=== PATIENT | female | born 1950 | race Hispanic/Latino ===

== ENCOUNTER 2020-06-16 14:30 | Inpatient (IN) | payer MEDICARE ==
[~2020-06-16] VITALS: Ht 162.6 cm; Wt 90.7 kg
[2020-06-16] MEDS ORDERED: SODIUM CHLORIDE 0.9% 1000ML 1,000 ML IV STA (14:49)
[2020-06-16] MEDS ORDERED: MORPHINE SULFATE INJ 4 MG/ML INJ 1ML IV STA (14:49)
[2020-06-16] MEDS ORDERED: ONDANSETRON HCL INJ 2MG/ML 2ML 2 MG/ML VIAL IV STA (14:49)
--- NOTE | 2020-06-16 14:52 | Emergency Department Note ---
History of Present Illnes History of Present Illness Chief Complaint: Skin Rash or Abscess History of Present Illness This is a 70 year old female presents to the ED for 2 days of right sided facial pain. Seen at [facility] yesterday and was told that based on XR patient had dental decay on the left side of the mouth. Noted that this AM patient had increased swelling to the right malar region and right upper lip. Denies f/c/n/v . Onset (how long ago): day(s) (2) Severity: moderate Duration (how long): day(s) (2) Timing of current episode: constant Progression: worsening Context: Denies recent illness, Denies recent surgery, Denies recent immobilization, Denies recent travel, Denies trauma/injury, Denies new medications, Denies hx of DVT/PE, Denies non-compliance w/ medications, Denies other Exacerbating factors: eating Associated symptoms: Denies denies other symptoms, Denies confusion, Denies chest pain, Denies cough, Denies diaphoresis, Denies fever/chills, Denies headaches, Denies loss of appetite, Denies malaise, Denies nausea/vomiting, Denies rash, Denies seizure, Denies shortness of breath, Denies syncope, Denies weakness, Denies other Treatments prior to arrival: none Past Medical/Family History Physician Review I have reviewed the patient's past medical and family history. Any updates have been documented here. Past Medical History Recent Fever: No Clinical Suspicion of Infectio: Yes New/Unexplained Change in Ment: No Past Medical History: None Past Surgical History: None Social History Smoking Cessation: Never Smoker Alcohol Use: None Any Illegal Drug Use: No Review of Systems Review of Systems Constitutional: Reports no symptoms EENTM: Reports mouth swelling Cardiovascular: Reports no symptoms Respiratory: Reports no symptoms Gastrointestinal: Reports no symptoms Genitourinary: Reports no symptoms Musculoskeletal: Reports no symptoms Integumentary: Reports no symptoms Neurological: Reports no symptoms Psychological: Reports no symptoms Endocrine: Reports no symptoms Hematological/Lymphatic: Reports no symptoms Physical Exam Related Data Allergies: Coded Allergies: No Known Allergies (Unverified , 06/16/20) Vital signs reviewed: Yes Physical Exam CONSTITUTIONAL Constitutional: Present well-developed, Present well-nourished HENT HENT: Present dental caries HENT L/R: Present left ext ear normal, Present right ext ear normal EYES Eyes: Reports PERRL, Reports conjunctivae normal NECK Neck: Present ROM normal PULMONARY Pulmonary: Present effort normal, Present breath sounds normal CARDIOVASCULAR Cardiovascular: Present regular rhythm, Present heart sounds normal, Present capillary refill normal, Present normal rate GASTROINTESTINAL Abdominal: Present soft, Present nontender, Present bowel sounds normal GENITOURINARY Genitourinary: Present exam deferred SKIN Skin: Present other (right malar edema with right upper lip edema. multiple dental decay) MUSCULOSKELETAL Musculoskeletal: Present ROM normal NEUROLOGICAL Neurological: Present alert, Present oriented x 3, Present no gross motor or sensory deficits PSYCHOLOGICAL Psychological: Present mood/affect normal, Present judgement normal Results Laboratory Lab results reviewed: Yes Laboratory comments CBC : wbc 13 , CMP : wnl Assessment & Plan Medical Decision Making MDM Diff Dx : facial cellulitis, facial abscess, ANUG Assessment & Plan Final Impression: (1) Facial cellulitis (2) Periodontal abscess Depart Disposition: ADMITTED Home Meds Reported Medications [Vitamin] No Conflict Check 06/16/20 Levothyroxine Sodium (LEVOTHYROXINE SODIUM) 25 Mcg Tablet 06/16/20 Olmesartan/Hydrochlorothiazide (Olmesartan-Hctz 40-12.5 mg Tab) 1 Each Tablet 06/16/20 Metoprolol Succinate (METOPROLOL SUCCINATE) 50 Mg Tab.er.24h 06/16/20 Simvastatin (SIMVASTATIN) 40 Mg Tablet 06/16/20 Levothyroxine Sodium (Euthyrox) 25 Mcg Tablet 06/16/20 Phentermine Hcl (PHENTERMINE HCL) 37.5 Mg Tablet 06/16/20 Ibuprofen (IBUPROFEN) 600 Mg Tablet 06/16/20 Amoxicillin (AMOXICILLIN) 500 Mg Capsule 06/16/20 ROGER GREENE DO Jun 16, 2020 14:52
[2020-06-16] MEDS ORDERED: ONDANSETRON HCL INJ 2MG/ML 2ML 2 MG/ML VIAL IV PRN ×2 (15:00→18:15)
[2020-06-16] MEDS ORDERED: MORPHINE SULFATE 2 MG/ML SYR 1ML IV PRN (15:00)
[2020-06-16] MEDS ORDERED: SODIUM CHLORIDE 0.9% 1000ML 1,000 ML IV SCH (15:00)
--- OUTSIDE RECORDS SUMMARY | 2020-06-16 15:12 | XMS REPORT | Continuity of Care Document ---
Author Author [facility] Organization [facility] Address [address] [place] [address] Phone Unavailable Care Team Providers Care Biodiesel Engine Specialist Name Role Phone Unavailable Unavailable Problems This patient has no known problems. Allergies, Adverse Reactions, Alerts This patient has no known allergies or adverse reactions. Medications This patient has no known medications. Procedures This patient has no known procedures. Results Test Description Test Time Test Comments Results Result Comments Source SCR MAMM BILATERAL TEAGAN CAD DIGITAL 2020-04-30 15:14:50 - SCR MAMM BILATERAL TEAGAN CAD DIGITALBILATERAL DIGITAL SCREENING MAMMOGRAM 3D/2D WITH CAD: 04/30/2020CLINICAL: Asymptomatic. Digital breast tomosynthesis was performed in addition to routine CC and MLO views. Current mammographic images were evaluated by either a [employer] M-Vu or a [employer] ImageChecker CAD (computer aided detection system). Comparison is made to exams dated 01/11/2019 mammogram and mammogram - [facility]. The tissue of both breasts is predominantly fatty. There are benign calcifications in both breasts. No suspicious mass, architectural distortion, malignant type calcification, or lymph node abnormality detected. Breast architecture is stable compared to prior exams.IMPRESSION: BENIGNThere is no mammographic evidence of malignancy. Resume annual screening mammography in one year. Remy Kay M.D. ss/penrad:04/30/2020 15:14:50 [employer]: Aliza TROTTER, [facility] sent: BIRADS 1-2 Normal Mammogram BI-RADS: 2 Benign SCR MAMM BILATERAL TEAGAN CAD DIGITAL 2019-01-11 08:38:49 - SCR MAMM BILATERAL TEAGAN CAD DIGITALBILATERAL DIGITAL SCREENING MAMMOGRAM 3D/2D WITH CAD: 01/11/2019CLINICAL: Asymptomatic. Digital breast tomosynthesis was performed in addition to routine CC and MLO views. Current mammographic images were evaluated by either a [employer] M-Vu or a [employer] ImageChecker CAD (computer aided detection system). Comparison is made to exam dated 01/10/2018 mammogram - [facility]. The tissue of both breasts is predominantly fatty. There are benign calcifications in both breasts. No suspicious mass, architectural distortion, malignant type calcification, or lymph node abnormality detected. Breast architecture is stable compared to prior exams.IMPRESSION: BENIGNThere is no mammographic evidence of malignancy. Resume annual screening mammography in one year. Remy Kay M.D. ss/penrad:01/11/2019 08:38:49 [employer]: Jody TROTTER, [facility] sent: BIRADS 1-2 Normal Mammogram BI-RADS: 2 Benign
[2020-06-16] MEDS ORDERED: SODIUM CHLORIDE 0.9% 50ML 50 ML ONE (15:13)
[2020-06-16] MEDS ORDERED: IOPAMIDOL 370 MG/ML 200 ML INFUS..BTL INJ ONE (15:13)
--- OUTSIDE RECORDS SUMMARY | 2020-06-16 15:14 | XMS REPORT | Continuity of Care Document ---
Author Author [facility] Organization [facility] Address [address] [place] [address] Phone Unavailable Care Team Providers Care Engineering Inspection Assistant Name Role Phone Unavailable Unavailable Problems This [...] mammographic images were evaluated by either a [employer] M-Vu or a [employer] ImageChecker CAD (computer aided detection system). Comparison is made to exams dated 01/11/2019 mammogram and mammogram - [facility]. The tissue of both breasts is predominantly fatty. There are benign calcifications in both breasts. No suspicious mass, architectural distortion, malignant type calcification, or lymph node abnormality detected. Breast architecture is stable compared to prior exams.IMPRESSION: BENIGNThere is no mammographic evidence of malignancy. Resume annual screening mammography in one year. Remy Kay M.D. ss/penrad:04/30/2020 15:14:50 Personnel Records Clerk: Aliza TROTTER, [facility] sent: BIRADS 1-2 Normal Mammogram BI-RADS: 2 Benign SCR MAMM BILATERAL TEAGAN CAD DIGITAL 2019-01-11 08:38:49 - SCR MAMM BILATERAL TEAGAN CAD DIGITALBILATERAL DIGITAL SCREENING MAMMOGRAM 3D/2D WITH CAD: 01/11/2019CLINICAL: Asymptomatic. Digital breast tomosynthesis was performed in addition to routine CC and MLO views. Current mammographic images were evaluated by either a [employer] M-Vu or a [employer] ImageChecker CAD (computer aided detection system). Comparison is made to exam dated 01/10/2018 mammogram - [facility]. The tissue of both breasts is predominantly fatty. There are benign calcifications in both breasts. No suspicious mass, architectural distortion, malignant type calcification, or lymph node abnormality detected. Breast architecture is stable compared to prior exams.IMPRESSION: BENIGNThere is no mammographic evidence of malignancy. Resume annual screening mammography in one year. Remy Kay M.D. ss/penrad:01/11/2019 08:38:49 Personnel Records Clerk: Jody TROTTER, [facility] sent: BIRADS 1-2 Normal Mammogram BI-RADS: 2 Benign
--- OUTSIDE RECORDS SUMMARY | 2020-06-16 15:15 | XMS REPORT | Continuity of Care Document ---
Author Author [facility] Organization [facility] Address [address] [place] [address] Phone Unavailable Care Team Providers Care Associate Engineer Name Role Phone Unavailable Unavailable Problems This [...] mammographic images were evaluated by either a [employer] M-Vu or a [employer] ImageChecker CAD (computer aided detection system). Comparison is made to exams dated 01/11/2019 mammogram and mammogram - [facility]. The tissue of both breasts is predominantly fatty. There are benign calcifications in both breasts. No suspicious mass, architectural distortion, malignant type calcification, or lymph node abnormality detected. Breast architecture is stable compared to prior exams.IMPRESSION: BENIGNThere is no mammographic evidence of malignancy. Resume annual screening mammography in one year. Remy Kay M.D. ss/penrad:04/30/2020 15:14:50 Virtualization Engineer: Aliza TROTTER, [facility] sent: BIRADS 1-2 Normal Mammogram BI-RADS: 2 Benign SCR MAMM BILATERAL TEAGAN CAD DIGITAL 2019-01-11 08:38:49 - SCR MAMM BILATERAL TEAGAN CAD DIGITALBILATERAL DIGITAL SCREENING MAMMOGRAM 3D/2D WITH CAD: 01/11/2019CLINICAL: Asymptomatic. Digital breast tomosynthesis was performed in addition to routine CC and MLO views. Current mammographic images were evaluated by either a [employer] M-Vu or a [employer] ImageChecker CAD (computer aided detection system). Comparison is made to exam dated 01/10/2018 mammogram - [facility]. The tissue of both breasts is predominantly fatty. There are benign calcifications in both breasts. No suspicious mass, architectural distortion, malignant type calcification, or lymph node abnormality detected. Breast architecture is stable compared to prior exams.IMPRESSION: BENIGNThere is no mammographic evidence of malignancy. Resume annual screening mammography in one year. Remy Kay M.D. ss/penrad:01/11/2019 08:38:49 Virtualization Engineer: Jody TROTTER, [facility] sent: BIRADS 1-2 Normal Mammogram BI-RADS: 2 Benign
[2020-06-16] MEDS ORDERED: PIPER-TAZ 3.375 GM 50 ML ONE (15:54)
[2020-06-16] MEDS ORDERED: PIPERACILLIN/TAZO 4.5 GM 100 ML IV ONE (16:00)
[2020-06-16] MEDS ORDERED: LEVOTHYROXINE25 MCG (16:01)
[2020-06-16] MEDS ORDERED: PHENTERMINE H37.5 M1 PO (16:01)
[2020-06-16] MEDS ORDERED: OLMESARTAN-HCT1 EAC1 PO (16:01)
[2020-06-16] MEDS ORDERED: SIMVASTATIN40 MG PO (16:01)
[2020-06-16] MEDS ORDERED: EUTHYROX25 MCG PO (16:01)
[2020-06-16] MEDS ORDERED: AMOXICILLIN500 MG PO (16:01)
[2020-06-16] MEDS ORDERED: METOPROLOL SUCC50 MG PO (16:01)
[2020-06-16] MEDS ORDERED: IBUPROFEN600 MG PO (16:01)
[2020-06-16] MEDS ORDERED: VITAMIN (16:01)
[2020-06-16] MEDS ORDERED: ONDANSETRON HCL INJ 2MG/ML 2ML 2 MG/ML VIAL ONE (16:25)
[2020-06-16] MEDS ORDERED: MORPHINE SULFATE INJ 4 MG/ML INJ 1ML ONE (16:25)
[2020-06-16 17:05] VITALS: BP 138/54
[2020-06-16] MEDS ORDERED: CLONIDINE HCL 0.1 MG TAB PO PRN (17:15)
--- NOTE | 2020-06-16 17:34 | Diagnostic Imaging Report ---
CT MAX/FACPARANASAL [facility] HISTORY: Right facial swelling COMPARISON: None. TECHNIQUE: Axial CT images through the face were obtained with intravenous contrast. Coronal reformations were created. One or more of the following dose reduction techniques were used: Automated exposure control, adjustment of the mA and/or kV according to patient size, and/or utilization of iterative reconstruction technique. DISCUSSION: Periapical lucency at the right maxillary canine erodes through the buccal cortex and into the medial right maxillary sinus. Adjacent, 1.1 cm periosteal fluid collection along the anterior right maxilla is compatible with an abscess. There is marked local premaxillary cellulitis, right greater than left. Associated mild right maxillary sinus mucosal thickening is likely odontogenic. Additional scattered mild bilateral periapical lucencies are present. Multiple teeth are missing. No other discrete drainable fluid collection is identified. Mildly prominent bilateral upper cervical lymph nodes are likely reactive. No acute fracture is seen. No other destructive osseous lesions are seen. The orbits are intact. Intraorbital contents are grossly unremarkable. The paranasal sinuses are otherwise clear. Carotid siphon calcifications are present. Otherwise, the imaged intracranial compartment is grossly unremarkable. IMPRESSION: 1. Periapical abscess at the right maxillary canine erodes the buccal cortex and bulges into the right premaxillary subcutaneous soft tissues. 2. Mild right maxillary sinusitis is also likely odontogenic; periapical lucency at the right maxillary canine also erodes into the right maxillary sinus. Signed by: Dr. Morris Beach M.D. on 06/16/2020 5:31 PM
[2020-06-16] MEDS ORDERED: TURMERIC COMPL1 EACH PO (17:45)
[2020-06-16] MEDS ORDERED: WOMEN'S 50 PLU1 EACH PO (17:45)
[2020-06-16 17:46] VITALS: BP 138/54
[2020-06-16 17:47] VITALS: BP 138/54
--- NOTE | 2020-06-16 18:00 | NUR ---
RECEIVED PATIENT FROM [facility] TO ROOM 292. SHE IS IN STABLE CONDITION. IV LINE PATENT. ORIENTED TO ROOM AND POLICIES. CALL LIGHT WITHIN REACH. BED IN THE LOWEST POSITION.
[2020-06-16] MEDS: CLINDAMYCIN 600MG / 50ML 50 ML IV SCH (18:18)
[2020-06-16] MEDS: SODIUM CHLORIDE 0.9% 1000ML 1,000 ML IV SCH (18:18)
--- NOTE | 2020-06-16 19:10 | NUR ---
BEDSIDE SHIFT REPORT GIVEN TO ONCOMING NURSE. PATIENT IS RESTING IN BED. NO ACUTE DISTRESS NOTED AT THIS TIME. CALL LIGHT WITHIN REACH. BED IN THE LOWEST POSITION.
--- NOTE | 2020-06-16 19:15 | NUR ---
Patient visited in room during nursing rounds. Patient alert and oriented x3. Ambulatory in room prn. Right side of face appear swollen (cheek area up to under right eye). Patient on IVF (NS at 125ml/hr) and on scheduled IV antibiotic treatment. Call huffman within reach. Will monitor pt closely.
--- NOTE | 2020-06-16 19:35 | NUR ---
With order from ER doc (Dr. Scar Dumont), patient agreed and signed consent form for PICC placement. Nurse to notify Radiology dept to call in PICC nurse.
--- NOTE | 2020-06-16 19:40 | NUR ---
Verified with Rodrick ([employer]) that PICC nurse has been notified.
[2020-06-16 20:00] VITALS: BP 119/51
[2020-06-16] MEDS: ACETAMINOPHEN 325 MG TAB PO PRN (20:40)
[2020-06-16 21:30] VITALS: BP 119/51
--- NOTE | 2020-06-16 22:10 | NUR ---
Reece (PICC nurse) arrived on the unit and verified order for PICC placement with nurse (José). PICC nurse then went in patient room and explained PICC procedure. Pt verbally agreed to have procedure done.
--- NOTE | 2020-06-16 22:30 | NUR ---
PICC procedure done on right upper arm. STAT CXR ordered to confirm placement.
--- NOTE | 2020-06-16 22:40 | NUR ---
CXR done in room. Awaiting on results to confirm PICC placement.
--- NOTE | 2020-06-16 22:53 | Diagnostic Imaging Report ---
EXAMINATION: CHEST XRAY LINE PLACEMENT INDICATION: confirm PICC line placement COMPARISON: None FINDINGS: TUBES and LINES: New right upper extremity PICC tip terminates in the superior cavoatrial junction. LUNGS: Normal lung volumes. Lungs are clear. No consolidations. PLEURA: No pleural effusion or pneumothorax. HEART AND MEDIASTINUM: The cardiomediastinal silhouette is unremarkable. BONES AND SOFT TISSUES: No acute osseous lesion. Soft tissues are unremarkable. UPPER ABDOMEN: No free air under the diaphragm. Surgical clips in the right upper quadrant. IMPRESSION: No acute thoracic radiographic abnormality. Signed by: Arun Retana DO on 06/16/2020 10:49 PM
--- NOTE | 2020-06-16 22:53 | NUR ---
Nurse (José) was informed verbally by PICC nurse (Reece) to confirm that PICC was placed successfully and that he spoke with radiologist. Plan is to to take out peripheral IV and start using PICC line for IVF and IV antibiotics.
[2020-06-17] VITALS (8 sets, daily range): BP systolic 112–133; BP diastolic 50–61
[2020-06-17] MEDS: CLINDAMYCIN 600MG / 50ML 50 ML IV SCH ×4 (00:06→17:02)
[2020-06-17] MEDS: MORPHINE SULFATE 2 MG/ML SYR 1ML IV PRN ×2 (00:06→08:31)
--- NOTE | 2020-06-17 01:33 | History and Physical ---
CHIEF COMPLAINT: Right facial swelling. HISTORY OF PRESENT ILLNESS: This is a 70-year-old woman, who has a little bit of right facial swelling for about a week. Yesterday, she went to dentist and per the patient, one of her left teeth was pulled, however, apparently the patient has multiple cavities. This morning, she woke up with worsening of right facial swelling. Otherwise, denies nausea, vomiting, fever. No chest pain or shortness of breath. In the emergency room, the patient received a dose of Zosyn. The patient is being admitted with a diagnosis of facial cellulitis. The patient was prescribed amoxicillin yesterday after her dental procedure. PAST MEDICAL AND SURGICAL HISTORY: 1. Hypertension. 2. Hyperlipidemia. 3. Hypothyroidism. 4. Appendectomy. 5. Cholecystectomy. MEDICATIONS: Please see medication reconciliation form. ALLERGIES: NONE. SOCIAL HISTORY: Does not smoke. FAMILY HISTORY: Diabetes and heart disease. REVIEW OF SYSTEMS: A 10-point review of system obtained and nothing else is significant other than what is stated in the HPI. PHYSICAL EXAMINATION: VITAL SIGNS: Temperature 100.3, pulse 99, respiratory rate 21, blood pressure 119/51. GENERAL: No acute distress. SKIN: Right facial erythema noted with swelling. HEENT: Anicteric. Oropharynx with poor dentition. LUNGS: Clear. HEART: Regular rate and rhythm. Normal S1, S2. GI: Abdomen is soft, nondistended. NEUROLOGIC: Alert and oriented x3. Cranial nerves 2-12 grossly intact. PSYCHIATRIC: No hallucination. MUSCULOSKELETAL: Painless range of motion. LABORATORY DATA: White count 13, hemoglobin 13, platelet count 387. Sodium 137, potassium 4.4, BUN 11, creatinine 1.0. ASSESSMENT/PLAN: 1. Facial cellulitis. Her facial CT, which is read by the radiologist. The patient was initially seen at [facility]. CT shows periapical abscess at the right maxillary canine. The patient was initially admitted as facial cellulitis. At this time, I will consult Ear, Nose, Throat specialist and also Infectious Disease specialist and after they have a chance to evaluate the patient, we have to see whether we need to transfer her for higher level of care to a hospital, which has oral maxillary facial surgery. It looks like the patient has sepsis present on admission. We will continue IV fluid hydration and also IV morphine as needed for pain. 2. Hypertension. Currently, blood pressure is stable. 3. GI and DVT prophylaxis. We will start her on heparin subcu for now, though we will discontinue if she needs surgical intervention. MD RAPHAEL Akbar/ANDI /[id number]
[2020-06-17] MEDS: SODIUM CHLORIDE 0.9% 1000ML 1,000 ML IV SCH ×3 (02:30→20:49)
[2020-06-17] MEDS: ACETAMINOPHEN 325 MG TAB PO PRN ×2 (04:04→15:32)
[2020-06-17 06:01] LABS: BASOPHILS % 0.3 % (0.0-1.0); EOSINOPHILS % 0.3 % (0.0-6.0); HEMATOCRIT 31.8 % (34.2-44.1); HEMOGLOBIN 10.6 g/dL (12.0-16.0); LYMPHOCYTES # (AUTO) 1.7 (1.0-3.2); LYMPHOCYTES % 14.3 % (18.0-39.1); MEAN CORPUSCULAR HEMOGLOBIN 30.7 pg (28-32); MEAN CORPUSCULAR HGB CONC 33.3 g/dL (31-35); MEAN CORPUSCULAR VOLUME 92.2 fL (81-99); MONOCYTES # (AUTO) 1.1 (0.2-0.8); NEUTROPHILS # (AUTO) 8.9 (2.1-6.9); NEUTROPHILS % 75.8 % (38.7-80.0); PLATELET COUNT 312 x10e3/uL (140-360); RED BLOOD COUNT 3.45 x10e6/uL (3.6-5.1); RED CELL DISTRIBUTION WIDTH 13.1 % (11.7-14.4)
[2020-06-17 06:04] LABS: INR 1.06; PROTHROMBIN TIME 14.3 seconds (11.9-14.5)
[2020-06-17 06:05] LABS: PARTIAL THROMBOPLASTIN TIME 31.1 seconds (23.8-35.5)
[2020-06-17 06:16] LABS: ALANINE AMINOTRANSFERASE 86 IU/L (0-55); ALBUMIN 3.5 g/dL (3.5-5.0); ALBUMIN/GLOBULIN RATIO 1.1 (0.8-2.0); ALKALINE PHOSPHATASE 69 IU/L (40-150); ANION GAP 12.4 mmol/L (8-16); BLOOD UREA NITROGEN 6 mg/dL (7-26); BUN/CREATININE RATIO 8 (6-25); CALCIUM 8.1 mg/dL (8.4-10.2); CARBON DIOXIDE 27 mmol/L (22-29); CHLORIDE 103 mmol/L (98-107); CREATININE, SERUM 0.71 mg/dL (0.57-1.11); EST GLOMERULAR FILTRATION RATE > 60 ML/MIN (60-); GLUCOSE 115 mg/dL (74-118); POTASSIUM 3.4 mmol/L (3.5-5.1); SODIUM 139 mmol/L (136-145)
--- NOTE | 2020-06-17 07:00 | NUR ---
RECEIVED BEDSIDE SHIFT REPORT FROM OFF GOING NIGHT NURSE. PATIENT IN STABLE CONDITION, NO S/S OF DISTRESS NOTED. RESPIRATIONS EVEN AND NONLABORED. FACIAL SWELLING NOTED THE THE RIGHT SIDE OF THE FACE. PATIENT ABLE TO MAKE NEEDS KNOWN. NO PAIN VOICED. IV FLUIDS INFUSING, SITE ASYMPTOMATIC AND PATENT, TRANSPARENT DRESSING C/D/I. BED IN LOWEST POSITION AND LOCKED. CALL LIGHT WITHIN REACH.
[2020-06-17] MEDS: OXYMETAZOLINE HCL 0.05% NAS 1 SPRAY BTL SCH ×2 (08:33→20:17)
[2020-06-17] MEDS: SALINE 0.65% NAS SOLN 1 SPRAY BTL SCH ×4 (08:33→22:07)
[2020-06-17] MEDS: HEPARIN SOD (PORCINE) 5,000 UNIT/ML VIAL SC SCH ×2 (09:00→20:17)
--- NOTE | 2020-06-17 09:25 | Consultation ---
DATE OF CONSULTATION: 06/17/2020 Hospital Consultation HISTORY OF PRESENT ILLNESS: I was kindly asked to see this 70-year-old woman for evaluation of facial cellulitis. The patient reports approximately two weeks ago she began experiencing pain in her tooth and face. The pain became progressively worse and two days ago, she sought consultation with her dentist who discovered dental abscess in both the left upper and right lower teeth. She underwent dental extraction of the left upper tooth, actually dentist claimed that was the worst abscess. Her facial pain and swelling progressed and she presented to the emergency department for evaluation and treatment. Subsequent CT scan demonstrated a periapical abscess of the right maxillary canine which eroded through the buccal cortex and bulges into the right premaxillary subcutaneous soft tissues. There was also noted mild right maxillary sinusitis, which was consistent with odontogenic infection and the right maxillary canine also eroded into the right maxillary sinus. The patient was begun on IV antibiotic therapy and reports significant improvement in her right-sided facial pain after initiation of the antibiotics. PAST MEDICAL HISTORY: Reviewed in detail in chart. PAST SURGICAL HISTORY: Reviewed in detail in chart. REVIEW OF SYSTEMS: Otolaryngology review of systems is pertinent for itchy ears which the patient uses Q-Tips. PHYSICAL EXAMINATION: The right pinna is normal. The right external auditory canal has cerumen impacted in the medial aspect. The tympanic membrane cannot be visualized. The left pinna is normal. Left external auditory canal is normal. Left tympanic membrane is normal. She has a moderate S-shaped nasal septal deviation with minimal edema of the nasal mucosa. She has multiple carious teeth and tenderness in the right buccal mucosal area and right premaxilla. There is normal tongue and no significant postnasal drainage. She has no palpable cervical adenopathy. There is facial swelling on the right side involving the entire right premaxillary region and including the upper and lower eyelids. ASSESSMENT: 1. Facial cellulitis secondary to dental abscess. 2. Acute sinusitis secondary to dental abscess. 3. Nasal septal deviation. 4. Right impacted cerumen. 5. A 1.1 cm periosteal fluid collection along the anterior right maxilla on CT scan. PLAN: 1. Continuation of IV antibiotic therapy. 2. Addition of [place] nasal spray and oxymetazoline nasal spray for treatment of the sinusitis. 3. No surgical intervention for the dental abscess at this time. However, she may require surgery based on clinical course. MD MARISA Cota/ANDI /[id number]
[2020-06-17] MEDS ORDERED: POTASSIUM CHLORIDE 20 MEQ TAB CR PO ONE (13:00)
--- NOTE | 2020-06-17 18:33 | NUR ---
INFECTIOUS DISEASE CONSULT NOTE BRITTA OSUNA MD CC: facial cellulitis HPI: 70-year-old woman, who has a little bit of right facial swelling for about a week. Yesterday, she went to dentist and per the patient, one of her left teeth was pulled, however, apparently the patient has multiple cavities. This morning, she woke up with worsening of right facial swelling. Otherwise, denies nausea, vomiting, fever. No chest pain or shortness of breath. In the emergency room, the patient received a dose of Zosyn. The patient is being admitted with a diagnosis of facial cellulitis. The patient was prescribed amoxicillin yesterday after her dental procedure. PMH: 1. Hypertension. 2. Hyperlipidemia. 3. Hypothyroidism. 4. Appendectomy. 5. Cholecystectomy. PAST SURGICAL HX: denies SOCIAL HX: no smoking, no drinking FAMILY HX: heart disease ROS: jaw pain ALL 14 POINT ROS NEG UNLESS OTHERWISE NOTED PHYSICAL EXAM: VITAL SIGNS: per chart SKIN: Right facial erythema noted with swelling. HEENT: Anicteric. Oropharynx with poor dentition. LUNGS: Clear. HEART: Regular rate and rhythm. Normal S1, S2. GI: Abdomen is soft, nondistended. NEUROLOGIC: Alert and oriented x3. intact PSYCHIATRIC: No hallucination. no anxiety MUSCULOSKELETAL: Painless range of motion. no joint swelling LABORATORY DATA: per chart RADIOLOGY: reviewed LABS: reviewed IMPRESSION: Facial Cellulitis Perapical abscess at right maxillary canine Sepsis present on admission PLAN: will change to vanc and cefepime appreciate ENT input will monitor response clinically Valeria Hudson MSN, SERVICE PARTS COORDINATOR, AGACNP-BC Britta osuna M.D
--- NOTE | 2020-06-17 18:35 | NUR ---
TONIE COMPUTER SCIENTIST ( WITH ) MADE AWARE OF THE PATIENT HAVING A FEVER OF 101.4 RECIVED NEW ORDERS.
--- NOTE | 2020-06-17 19:00 | NUR ---
Resumed care of patient. Patient awake and resting in bed, no s/s of distress at this time. Bed locked and in lowest position, side rails upx3, call light placed within reach. Patient instructed to call for assistance if needed, verbalized understanding. All safety measures in place.
--- NOTE | 2020-06-17 19:17 | NUR ---
COMPLETED BEDSIDE SHIFT REPORT AND ROUNDING FROM OFF GOING NIGHT NURSE. PATIENT IN STABLE CONDITION, NO S/S OF DISTRESS NOTED. RESPIRATIONS EVEN AND NONLABORED. FACIAL SWELLING NOTED THE THE RIGHT SIDE OF THE FACE. PATIENT ABLE TO MAKE NEEDS KNOWN. NO PAIN VOICED. IV FLUIDS INFUSING, SITE ASYMPTOMATIC AND PATENT, TRANSPARENT DRESSING C/D/I. BED IN LOWEST POSITION AND LOCKED, SIDE RAILS X 2, NONSKID SOCKS APPLIED. CALL LIGHT WITHIN REACH. Addendum: 06/17/20 at 1922 by Vonnie Ceballos RN CHARTING ERROR
--- NOTE | 2020-06-17 19:22 | NUR ---
COMPLETED BEDSIDE SHIFT REPORT AND ROUNDING WITH ONCOMING NIGHT NURSE. PATIENT IN STABLE CONDITION, NO S/S OF DISTRESS NOTED. RESPIRATIONS EVEN AND NONLABORED. FACIAL SWELLING NOTED THE THE RIGHT SIDE OF THE FACE. PATIENT ABLE TO MAKE NEEDS KNOWN. NO PAIN VOICED. IV FLUIDS INFUSING, SITE ASYMPTOMATIC AND PATENT, TRANSPARENT DRESSING C/D/I. BED IN LOWEST POSITION AND LOCKED, SIDE RAILS X 2, NONSKID SOCKS APPLIED. CALL LIGHT WITHIN REACH.
[2020-06-17] MEDS: VANCOMYCIN 1GM/NS 250 ML 250 ML IV SCH (20:17)
--- NOTE | 2020-06-17 21:57 | Progress Note ---
DATE: 06/17/2020 SUBJECTIVE: Her left face is little swollen today as well. OBJECTIVE: VITAL SIGNS: Temperature 101.4, pulse 106, respiratory rate 20, and blood pressure 116/61. GENERAL: No acute distress. SKIN: Facial swelling and erythema. LUNGS: Clear. HEART: Regular rate and rhythm. Normal S1, S2. GI: Abdomen is soft and nondistended. NEUROLOGIC: Alert and oriented x3. PSYCHIATRIC: No hallucination. LABORATORY DATA: White count 11.7, hemoglobin 10.6, platelet count 312, creatinine 0.7. PT and PTT are normal. ASSESSMENT AND PLAN: 1. Facial cellulitis due to apical abscess. We will continue IV antibiotic per Infectious Disease specialist. ENT is following as well. Continue IV morphine as needed for pain. 2. Hypertension, currently blood pressure stable. 3. Gastrointestinal and deep venous thrombosis prophylaxis. Heparin subcu. Alexiaching MD RAPHAEL Bains/ANDI /[id number]
[2020-06-17] MEDS: CEFEPIME 1GM/NS 0.9% 50 ML 50 ML IV SCH (22:06)
[2020-06-18] VITALS (8 sets, daily range): BP systolic 120–166; BP diastolic 48–70
[2020-06-18] MEDS: SODIUM CHLORIDE 0.9% 1000ML 1,000 ML IV SCH ×2 (03:33→23:30)
[2020-06-18] MEDS: ACETAMINOPHEN 325 MG TAB PO PRN (04:12)
[2020-06-18] MEDS: SALINE 0.65% NAS SOLN 1 SPRAY BTL SCH ×5 (05:17→22:00)
[2020-06-18] MEDS: CEFEPIME 1GM/NS 0.9% 50 ML 50 ML IV SCH ×3 (05:17→22:00)
[2020-06-18 05:31] LABS: BASOPHILS % 0.4 % (0.0-1.0); EOSINOPHILS # (AUTO) 0.1 (0.0-0.4); EOSINOPHILS % 0.8 % (0.0-6.0); HEMATOCRIT 30.3 % (34.2-44.1); HEMOGLOBIN 9.9 g/dL (12.0-16.0); LYMPHOCYTES # (AUTO) 2.6 (1.0-3.2); MEAN CORPUSCULAR HEMOGLOBIN 30.3 pg (28-32); MEAN CORPUSCULAR HGB CONC 32.7 g/dL (31-35); MEAN CORPUSCULAR VOLUME 92.7 fL (81-99); MONOCYTES # (AUTO) 0.9 (0.2-0.8); MONOCYTES % 8.2 % (4.4-11.3); NEUTROPHILS # (AUTO) 7.5 (2.1-6.9); NEUTROPHILS % 67.1 % (38.7-80.0); PLATELET COUNT 280 x10e3/uL (140-360); RED BLOOD COUNT 3.27 x10e6/uL (3.6-5.1); RED CELL DISTRIBUTION WIDTH 13.1 % (11.7-14.4)
[2020-06-18 05:49] LABS: ANION GAP 11.8 mmol/L (8-16); BLOOD UREA NITROGEN < 5 mg/dL (7-26); CALCIUM 8.1 mg/dL (8.4-10.2); CARBON DIOXIDE 26 mmol/L (22-29); CHLORIDE 107 mmol/L (98-107); CREATININE, SERUM 0.63 mg/dL (0.57-1.11); EST GLOMERULAR FILTRATION RATE > 60 ML/MIN (60-); GLUCOSE 97 mg/dL (74-118); MAGNESIUM 1.7 MG/DL (1.3-2.1); POTASSIUM 3.8 mmol/L (3.5-5.1); SODIUM 141 mmol/L (136-145)
[2020-06-18 05:55] LABS: BUN/CREATININE RATIO 8 (6-25)
[2020-06-18 06:16] LABS: ALBUMIN 3.3 g/dL (3.5-5.0); BILIRUBIN,DIRECT 0.2 mg/dL (0.0-0.5)
[2020-06-18] MEDS: HEPARIN SOD (PORCINE) 5,000 UNIT/ML VIAL SC SCH ×2 (08:10→20:21)
[2020-06-18] MEDS: VANCOMYCIN 1GM/NS 250 ML 250 ML IV SCH ×2 (08:10→20:21)
[2020-06-18] MEDS: OXYMETAZOLINE HCL 0.05% NAS 1 SPRAY BTL SCH ×2 (11:17→20:21)
--- NOTE | 2020-06-18 16:35 | NUR ---
Nutrition Screen Note RD Recommendation for Physician: -Recommend advancing to cardiac diet when appropriate -When diet is advanced, pt requested food be ground due to issues with chewing Plan of Care: RD following, monitoring for tolerance and adequacy Nutrition reason for involvement: Nutrition Risk trigger Primary Diagnose(s): facial cellulitis PMH: Hypertension, Hyperlipidemia, Hypothyroidism, Appendectomy, Cholecystectomy Ht: 64 in Wt: 200 lb BMI: 34.3 kg/m2 IBW:[address] Assessment: (06/18/20) Chart reviewed. Labs and meds reviewed. Pt is a 70 year old female admitted with facial cellulitis. Pt is currently on a clear liquid diet. Pt reports tolerating the diet and usually eats all of her meals. Pt mentioned she usually weighs 200 lbs. No N/V reported, but pt stated she has diarrhea. Pt also requested that her food be ground due to missing teeth when diet is advanced. Will continue to monitor Current Diet: clear liquid Malnutrition Evaluation (06/18/20) The patient does not meet criteria for a specified degree of malnutrition at this time. Will re-evaluate at follow-up as appropriate. Diet Education Needs Assessment: Diet education not indicated at this time Nutrition Care Level: low Signed: Camilla Segundo, RD, LD
--- NOTE | 2020-06-18 18:32 | Progress Note ---
DATE: SUBJECTIVE: Ms. Flores is doing well. There is no new complaint. She came with right face cellulitis. When she came here, she is feeling better. PHYSICAL EXAMINATION: GENERAL: Currently alert and oriented. VITAL SIGNS: Stable, afebrile. HEENT: Not icteric. NECK: Supple. CHEST: Clear. HEART: S1 and S2. ABDOMEN: Soft. Bowel sounds present. EXTREMITIES: No edema. SKIN: No rash. IMPRESSION: Face cellulitis on the right side. Continue on IV antibiotic, has a periapical abscess of right maxillary canine. ENT is following. Continue vancomycin and cefepime. May need I and D. we will follow. MD ERICH Maciel/ANDI /[id number]
--- NOTE | 2020-06-18 19:00 | NUR ---
Resumed care of patient. Patient awake and resting in bed, no s/s of distress at this time. All safety measures in place.
--- NOTE | 2020-06-18 19:39 | NUR ---
report given to oncoming nurse walking rounds complete.
--- NOTE | 2020-06-18 22:08 | Progress Note ---
DATE: 06/18/2020 SUBJECTIVE: Facial swelling better. The patient is having diarrhea, but no abdominal pain. OBJECTIVE: VITAL SIGNS: Temperature 98.6, pulse 103, respiratory rate 20, blood pressure 166/70. GENERAL: No acute distress. SKIN: Facial erythema better. LUNGS: Clear. HEART: Regular rate and rhythm. Normal S1 and S2. GI: Abdomen is soft and nondistended. NEUROLOGIC: Alert and oriented x3. PSYCHIATRIC: No hallucination. LABORATORY DATA: White count 11, hemoglobin 10, and platelet count 280. Creatinine 0.6. ASSESSMENT AND PLAN: 1. Facial cellulitis due to apical abscess. We will continue IV antibiotic per Infectious Disease. ENT is following as well. Looks clinically a little better. 2. Diarrhea. We will rule her out for Clostridium difficile. 3. Gastrointestinal and deep venous thrombosis prophylaxis. Continue heparin subcutaneous. I have updated her over the phone. MD RAPHAEL Akbar/ANDI /[id number]
[2020-06-19] VITALS: BP 129/55
[2020-06-19 04:00] VITALS: BP 109/45
[2020-06-19] MEDS: CEFEPIME 1GM/NS 0.9% 50 ML 50 ML IV SCH ×2 (05:31→14:00)
[2020-06-19] MEDS: SALINE 0.65% NAS SOLN 1 SPRAY BTL SCH ×3 (05:31→14:00)
--- NOTE | 2020-06-19 07:32 | NUR ---
PATIENT IN BED RESTING WITH NO S/S OF DISTRESS, DENIED PAIN AT THIS TIME. MILD REDNESS TO RIGHT SIDE OF FACE. BED IN LOWER POSITION, CALL LIGHT AT REACH.
[2020-06-19 07:50] VITALS: BP 141/63
[2020-06-19 08:00] VITALS: BP 141/63
[2020-06-19] MEDS: VANCOMYCIN 1GM/NS 250 ML 250 ML IV SCH (08:30)
[2020-06-19] MEDS: OXYMETAZOLINE HCL 0.05% NAS 1 SPRAY BTL SCH (09:03)
[2020-06-19] MEDS: HEPARIN SOD (PORCINE) 5,000 UNIT/ML VIAL SC SCH (09:03)
--- NOTE | 2020-06-19 11:32 | NUR ---
PATIENT SITTING UP IN BED TALKING ON THE PHONE, NO COMPLAIN VOICED. CALL LIGHT AT REACH.
--- NOTE | 2020-06-19 12:37 | NUR ---
INFECTIOUS DISEASE PROGRESS NOTE BRITTA OSUNA MD CC: facial cellulitis HPI: 70-year-old woman, who has a little bit of right facial swelling for about a week. Yesterday, she went to dentist and per the patient, one of her left teeth was pulled, however, apparently the patient has multiple cavities. This morning, she woke up with worsening of right facial swelling. Otherwise, denies nausea, vomiting, fever. No chest pain or shortness of breath. In the emergency room, the patient received a dose of Zosyn. The patient is being admitted with a diagnosis of facial cellulitis. The patient was prescribed amoxicillin yesterday after her dental procedure. PMH: 1. Hypertension. 2. Hyperlipidemia. 3. Hypothyroidism. 4. Appendectomy. 5. Cholecystectomy. ROS: jaw pain ALL 14 POINT ROS NEG UNLESS OTHERWISE NOTED PHYSICAL EXAM: VITAL SIGNS: per chart SKIN: Right facial erythema noted with swelling. HEENT: Anicteric. Oropharynx with poor dentition. LUNGS: Clear. HEART: Regular rate and rhythm. Normal S1, S2. GI: Abdomen is soft, nondistended. NEUROLOGIC: Alert and oriented x3. intact PSYCHIATRIC: No hallucination. no anxiety MUSCULOSKELETAL: Painless range of motion. no joint swelling LABORATORY DATA: per chart RADIOLOGY: reviewed LABS: reviewed IMPRESSION: Facial Cellulitis Perapical abscess at right maxillary canine Sepsis present on admission PLAN: can switch to oral can d/c when okay with others script left in chart Valeria Hudson MSN, JOB LITHOGRAPHER, AGACNP-BC Britta osuna M.D
[2020-06-19 12:57] VITALS: BP 147/56
[2020-06-19] MEDS ORDERED: LOPERAMIDE HCL 2 MG CAP PO ONE (16:15)
--- NOTE | 2020-06-19 16:15 | NUR ---
MD IN TO SEE PATIENT, NEW ORDER RECEIVED.
[2020-06-19 17:18] VITALS: BP 125/78
[2020-06-19] MEDS ORDERED: AUGMENTIN 875-1 EACH PO (17:38)
--- NOTE | 2020-06-19 18:40 | NUR ---
PATIENT DISCHARGED HOME. DISCHARGE INSTRUCTIONS, PRESCRIPTION, AND FOLLOW UP GIVEN TO PATIENT, SHE VERBALIZED UNDERSTANDING. PICC LINE TO RIGHT UPPER ARM REMOVED WITH TIP INTACT. ALL PERSONAL ITEMS TAKEN WITH PATIENT. LEFT UNIT PER WHEEL CHAIR TO FRONT LOBBY IN STABLE CONDITION.
--- NOTE | 2020-06-19 22:28 | Discharge Summary ---
FINAL DIAGNOSIS: Sepsis, present on admission due to facial cellulitis. SECONDARY DIAGNOSES: 1. Hypertension. 2. Clostridium difficile negative antibiotic-induced diarrhea. CONSULTANTS: 1. Dr. Sloan, EENT specialist. 2. Dr. Cordova, Infectious Disease specialist. PROCEDURES/STUDIES PERFORMED: CT of the face. HISTORY: Per [facility] HOSPITAL COURSE: The patient was initially put on clindamycin. Subsequently, this was switched to IV vancomycin and cefepime per Infectious Disease. The patient responded well. She did develop diarrhea. Fortunately, her C. difficile was negative. We will treat with Imodium at this time. I have discussed with ENT. The patient will be discharged on Augmentin for 14 days per Infectious Disease. The patient was seen and examined today. CONDITION ON DISCHARGE: Improved. DISCHARGE MEDICATION: Please see medication reconciliation form. Yiching MD RAPHAEL Bains/ANDI /[id number]
== END 2020-06-19 18:32 | disposition home or self-care (01) | DRG 872 ==
LOC: FSED 14:50 → ERHOLD 14:55 → FSED 15:08 → MED/SURG3 16:36
PROVIDERS: ADMIT Internal Medicine; ATTEND Internal Medicine
PROC: 02HV33Z Insertion of Infusion Device into Superior Vena Cava, Percutaneous Approach (ICD-10-PCS; principal; 2020-06-16)
DX: A41.9 Sepsis, unspecified organism (principal); L03.211 Cellulitis of face; K52.1 Toxic gastroenteritis and colitis; I10 Essential (primary) hypertension; T36.95XA Adverse effect of unspecified systemic antibiotic, initial encounter; Z11.59 Encounter for screening for other viral diseases; K04.7 Periapical abscess without sinus; J34.2 Deviated nasal septum; H61.21 Impacted cerumen, right ear; E78.5 Hyperlipidemia, unspecified; E03.9 Hypothyroidism, unspecified
CPT/HCPCS: 36415; 36569; 70487; 71045; 74470; 80048; 80053; 80076; 80202; 83735; 85025; 85610; 85730; 87493; 99284; J0692; J1644; J2270; J2405; J2543; J3370; J7030; Q9967

== ENCOUNTER 2021-11-09 13:12 | Emergency (ER) | payer MEDICARE ==
[~2021-11-09] VITALS: Ht 162.6 cm; Wt 90.7 kg
[~2021-11-09 13:12] MED LIST: AMOXICILLIN500 MG PO; AUGMENTIN 875-1 EACH PO; EUTHYROX25 MCG PO; IBUPROFEN600 MG PO; LEVOTHYROXINE25 MCG; METOPROLOL SUCC50 MG PO; OLMESARTAN-HCT1 EAC1 PO; PHENTERMINE H37.5 M1 PO; SIMVASTATIN40 MG PO; TURMERIC COMPL1 EACH PO; VITAMIN; WOMEN'S 50 PLU1 EACH PO
[2021-11-09 13:40] LABS: BASOPHILS # (AUTO) 0.1 (0.0-0.1); BASOPHILS % 0.5 % (0.0-1.0); EOSINOPHILS # (AUTO) 0.1 (0.0-0.4); EOSINOPHILS % 0.6 % (0.0-6.0); HEMOGLOBIN 12.4 g/dL (12.0-16.0); LYMPHOCYTES # (AUTO) 2.5 (1.0-3.2); LYMPHOCYTES % 23.8 % (18.0-39.1); MEAN CORPUSCULAR HEMOGLOBIN 30.2 pg (28-32); MEAN CORPUSCULAR HGB CONC 32.6 g/dL (31-35); MEAN CORPUSCULAR VOLUME 92.5 fL (81-99); MONOCYTES # (AUTO) 0.6 (0.2-0.8); NEUTROPHILS # (AUTO) 7.3 (2.1-6.9); NEUTROPHILS % 68.8 % (38.7-80.0); PLATELET COUNT 368 x10e3/uL (140-360); RED BLOOD COUNT 4.11 x10e6/uL (3.6-5.1); RED CELL DISTRIBUTION WIDTH 13.2 % (11.7-14.4)
[2021-11-09 13:51] LABS: INR 0.99; PROTHROMBIN TIME 13.8 seconds (11.9-14.5)
[2021-11-09 13:52] LABS: PARTIAL THROMBOPLASTIN TIME 29.7 seconds (23.8-35.5)
[2021-11-09 13:58] LABS: CLARITY,URINE CLEAR (CLEAR); COLOR,URINE YELLOW (YELLOW); KETONES,URINE NEGATIVE (NEGATIVE); LEUKOCYTE ESTERASE ,URINE NEGATIVE (NEGATIVE); NITRITE,URINE NEGATIVE (NEGATIVE); PROTEIN,URINE DIPSTICK NEGATIVE (NEGATIVE); URINE UROBILINOGEN 0.2 mg/dL (0.2 - 1)
[2021-11-09 13:59] LABS: ALANINE AMINOTRANSFERASE 18 IU/L (0-55); ALBUMIN 3.8 g/dL (3.5-5.0); ALBUMIN/GLOBULIN RATIO 0.8 (0.8-2.0); ALKALINE PHOSPHATASE 64 IU/L (40-150); ANION GAP 15.9 mmol/L (8-16); BLOOD UREA NITROGEN 11 mg/dL (7-26); BUN/CREATININE RATIO 14 (6-25); CALCIUM 9.7 mg/dL (8.4-10.2); CARBON DIOXIDE 26 mmol/L (22-29); CHLORIDE 102 mmol/L (98-107); CREATINE KINASE 69 IU/L (29-168); CREATININE, SERUM 0.77 mg/dL (0.57-1.11); EST GLOMERULAR FILTRATION RATE 74 ML/MIN (60-); GLUCOSE 108 mg/dL (74-118); POTASSIUM 3.9 mmol/L (3.5-5.1); SODIUM 140 mmol/L (136-145)
[2021-11-09] MEDS ORDERED: KETOROLAC TROMETHAMINE 30 MG/ML VIAL IV NR (14:00)
[2021-11-09] MEDS ORDERED: BELLADONNA ALK/PHENOBARBITAL 5 ML UDC PO ONE (14:00)
[2021-11-09] MEDS ORDERED: MAGNESIUM/ALUMINUM/SIMETHICONE 30 ML UDC PO ONE (14:00)
[2021-11-09] MEDS ORDERED: LIDOCAINE VISC 2% SOLN 15 ML UDC PO ONE (14:00)
[2021-11-09 14:16] LABS: EPITHELIAL CELLS,URINE FEW /LPF; RBC,URINE 0-5 /HPF (0-5); WBC,URINE (MAN) 0-5 /HPF (0-5)
[2021-11-09 15:56] LABS: CREATINE KINASE MB 1.3 ng/mL (0-5.0)
== END 2021-11-09 16:50 | disposition home or self-care (01) ==
LOC: ER 13:27
DX: R07.89 Other chest pain (principal); K21.9 Gastro-esophageal reflux disease without esophagitis; I10 Essential (primary) hypertension; E78.5 Hyperlipidemia, unspecified; E03.9 Hypothyroidism, unspecified; E66.01 Morbid (severe) obesity due to excess calories
CPT/HCPCS: 36415; 71045; 80053; 81001; 82550; 82553; 83735; 83880; 84484; 85025; 85379; 85610; 85730; 87086; 93005; 99283; C9113